=== PATIENT | male | born 1970 | race Caucasian/White ===

== ENCOUNTER 2018-11-15 01:34 | Emergency (ER) | payer BC ==
--- NOTE | 2018-11-15 01:42 | NUR ---
ED Nurse Note: Patient is leaving without beign seen, states that he just wants his blood pressure checked and if it is not too high he will leave and see his primary physician tomorrow. patient's blood pressure is 160/104 and left. patient walked out of ED with a steady gait, complains of no pain
== END 2018-11-15 01:45 | disposition left against medical advice (07) ==
LOC: EMR 01:45
DX: Z53.21 Procedure and treatment not carried out due to patient leaving prior to being seen by health care provider (principal)